=== PATIENT | male | born 1950 | race Caucasian/White ===

== ENCOUNTER → 2018-08-20 15:28 | Outpatient (CLI) | payer OTHER | END | disposition home or self-care (01) | LOC: D.CT 15:28 | DX: R91.8 Other nonspecific abnormal finding of lung field (principal) ==

== ENCOUNTER → 2018-08-24 16:09 | Outpatient (CLI) | payer OTHER ==
[2018-08-27 03:12] LABS: ANGIOTENSIN CONVERTING ENZYME 52 U/L (14-82)
[2018-08-29 16:07] LABS: FUNGAL - ASP FLAVUS Negative (Neg:<1:1); FUNGAL - ASP NIGER Negative (Neg:<1:1); FUNGAL - ASPER FUMIGATUS Negative (Neg:<1:1)
== END | disposition home or self-care (01) ==
LOC: D.LABREF 16:09
PROVIDERS: Internal Medicine Pulmonary Disease
DX: R91.8 Other nonspecific abnormal finding of lung field (principal)

== ENCOUNTER → 2019-03-09 10:07 | Outpatient (CLI) | payer OTHER | END | disposition home or self-care (01) | LOC: D.CT 10:00 | PROVIDERS: ATTEND Internal Medicine Pulmonary Disease | DX: R91.8 Other nonspecific abnormal finding of lung field (principal) ==

== ENCOUNTER → 2019-09-12 09:57 | Outpatient (CLI) | payer OTHER | END | disposition home or self-care (01) | LOC: D.CT 09:57 | PROVIDERS: ATTEND Internal Medicine Pulmonary Disease | DX: R91.8 Other nonspecific abnormal finding of lung field (principal) ==